=== PATIENT | male | born 1940 | race Caucasian/White ===

== ENCOUNTER 2017-11-07 08:54 | Day surgery (SDC) | payer OTHER, MEDICARE ==
[~2017-11-07] VITALS: Ht 177.8 cm; Wt 102.1 kg
[~2017-11-07 08:54] MED LIST: LIPITOR40 MG PO; PROSCAR5 MG PO
[2017-11-07 09:27] VITALS: BP 155/76
[2017-11-07 19:30] VITALS: BP 140/81
[2017-11-07 20:36] VITALS: BP 141/77
== END 2017-11-07 20:44 | disposition home or self-care (01) ==
LOC: SDC 08:54
PROVIDERS: Anesthesiology
DX: M48.061 Spinal stenosis, lumbar region without neurogenic claudication (principal); M51.16 Intervertebral disc disorders with radiculopathy, lumbar region; E78.5 Hyperlipidemia, unspecified; N40.0 Benign prostatic hyperplasia without lower urinary tract symptoms; F17.210 Nicotine dependence, cigarettes, uncomplicated; Z90.49 Acquired absence of other specified parts of digestive tract
CPT/HCPCS: 72020; 76000; 85014; 85018; J0330; J0690; J1100; J1170; J2250; J2405; J2765; J3010; S0020